=== PATIENT | female | born 1945 | race Caucasian/White ===

== ENCOUNTER 2021-08-08 08:44 | Outpatient (CLI) | payer MEDICARE, OTHER, SELFPAY ==
--- NOTE | ~2021-08-08 | DEXA_ITS ---
Bone Density Report Name: VIDHI HANNA Age: 75 Sex: Female Ethnicity: White Date of : 1945 Indication: postmenopausal; height loss; rheumatoid arthritis; Referring Provider: NICHO, RAYMUNDO Study: Bone densitometry was performed. Exam Date: August 08, 2021 Accession number: [id number] Bone Density: Region BMD T-score Z-score Classification AP Spine (L1, L2, L3) 0.941 -0.7 1.7 Normal Femoral Neck (Left) 0.767 -0.7 1.4 Normal Total Hip (Left) 0.871 -0.6 1.3 Normal Total Hip Bilateral Avg 0.843 -0.8 1.1 Normal Femoral Neck (Right) 0.687 -1.5 0.7 Osteopenia Total Hip (Right) 0.814 -1.0 0.8 Normal World Health Organization criteria for BMD impression classify patients as: Normal (T-score at or above -1.0), Osteopenia (T-score between -1.0 and -2.5), or Osteoporosis (T-score at or below -2.5). 10-year Fracture Risk(1): Major Osteoporotic Fracture 14% Hip Fracture 3.1% Reported Risk Factors: [place] (), Neck BMD=0.687, BMI=33.6, rheumatoid arthritis (1) FRAX(R) Version 3.08. Fracture probability calculated for an untreated patient. Fracture probability may be lower if the patient has received treatment. Previous Exams: Region Exam Age BMD T-score BMD Change BMD Change Date g/cm2 vs Baseline vs Previous AP Spine(L1, L2, L3) 08/08/2021 75 0.941 -0.7 -0.016(-1.7%)# -0.011(-1.2%) 05/19/2019 73 0.952 -0.6 -0.005(-0.6%)# 0.056(6.3%)* 05/12/2017 71 0.896 -1.1 -0.061(-6.4%)# -0.032(-3.5%)* 04/17/2015 69 0.928 -0.8 -0.029(-3.1%)# -0.029(-3.1%)# 12/06/2010 65 0.957 -0.6 Total Hip(Left) 08/08/2021 75 0.871 -0.6 -0.035(-3.9%)# -0.023(-2.6%) 05/19/2019 73 0.894 -0.4 -0.012(-1.3%)# 0.021(2.4%) 05/12/2017 71 0.873 -0.6 -0.033(-3.7%)# -0.002(-0.3%) 04/17/2015 69 0.875 -0.5 -0.031(-3.4%)# -0.031(-3.4%)# 12/06/2010 65 0.906 -0.3 Total Hip(Right) 08/08/2021 75 0.814 -1.0 -0.026(-3.1%)# -0.037(-4.3%)* 05/19/2019 73 0.851 -0.7 0.011(1.3%)# -0.027(-3.0%) 05/12/2017 71 0.878 -0.5 0.038(4.5%)# 0.025(3.0%) 04/17/2015 69 0.853 -0.7 0.013(1.5%)# 0.013(1.5%)# 12/06/2010 65 0.840 -0.8 *Denotes significance at 95% confidence level, LSC for AP Spine = 0.022 g/cm2, LSC for Total Hip = 0.027 g/cm2 Clinical Information Provided by Patient: Has rheumatoid arthritis Has used the following medications: Vitamin D, Calcium Patient maximum height was 67 Menopause Age: 53 No regular weight bearing exercise
== END 2021-08-08 08:45 | disposition home or self-care (01) ==
PROVIDERS: PCP Internal Medicine; Visit Provider Internal Medicine
DX: M81.0 Age-related osteoporosis without current pathological fracture (principal); M85.851 Other specified disorders of bone density and structure, right thigh
CPT/HCPCS: 77080

== ENCOUNTER 2021-10-17 10:10 | Outpatient (CLI) | payer MEDICARE, OTHER, SELFPAY ==
--- NOTE | ~2021-10-17 | XR_ITS ---
EXAMINATION: XR chest 2V 10/17/2021 10:30 INDICATION: Therapeutic drug level monitoring. PROCEDURE: 2 view chest COMPARISON: Comparison to multiple prior studies sequentially, with oldest reviewed study dated 12/06. FINDINGS: The lungs are clear. The cardiomediastinal silhouette is within normal limits. There are no pleural effusions. There is no pneumothorax suspected. IMPRESSION: 1: NO ACUTE CARDIOPULMONARY DISEASE. Reviewed, dictated and finalized at location B. ERY STARTER
== END 2021-10-17 10:11 | disposition home or self-care (01) ==
LOC: ANHIMG 10:17
PROVIDERS: PCP Internal Medicine; Visit Provider Internal Medicine Rheumatology
DX: Z51.81 Encounter for therapeutic drug level monitoring (principal); Z79.899 Other long term (current) drug therapy
CPT/HCPCS: 71046

== ENCOUNTER 2022-07-01 11:01 | Outpatient (CLI) | payer MEDICARE, OTHER, SELFPAY ==
--- NOTE | ~2022-07-01 | MR_ITS ---
EXAMINATION: MR brain IAC wo/w con DATE: 07/01/2022 12:07 INDICATION: Asymmetrical sensorineural hearing loss. TECHNIQUE: Magnetic resonance imaging (MRI) of the brain, brainstem, and internal auditory canals was performed without and with 19 mL MultiHance intravenous contrast. COMPARISON: None. FINDINGS: There is no intracranial hemorrhage, acute infarction, or abnormal intracranial mass lesion . There is a developmental venous anomaly in left frontal lobe. There are scattered areas of nonspeci fic increased T2-weighted signal intensity in the cerebral white matter, which is within normal limit s for the patient's age. The ventricles are normal in size. The paranasal sinuses are clear. The orbi ts are normal. The internal auditory canals and inner and middle ears are normal. The mastoid air lisa ls are normal. IMPRESSION: 1. Normal aging brain. Reviewed, dictated and finalized at location A. TAG INSERTER IMPRESSION: 1. Normal aging brain.
== END 2022-07-01 11:02 | disposition home or self-care (01) ==
PROVIDERS: PCP Internal Medicine
DX: H90.3 Sensorineural hearing loss, bilateral (principal)
CPT/HCPCS: 70553; A9577

== ENCOUNTER 2022-10-04 08:31 | Outpatient (CLI) | payer MEDICARE, OTHER, SELFPAY ==
--- NOTE | ~2022-10-04 | XR_ITS ---
Clinical Indication: Therapeutic drug level monitoring PA and lateral views of the chest: Comparison: 10/17/2021 Findings: The lungs are clear, without evidence of focal consolidation or pleural effusion. Cardiome diastinal silhouette is within normal limits. Bones and soft tissues are unremarkable. Impression: Normal chest. Reviewed, dictated and finalized at location . EY INSTRUMENT OPERATOR Impression: Normal chest.
== END 2022-10-04 08:32 | disposition home or self-care (01) ==
PROVIDERS: PCP Internal Medicine; Visit Provider Internal Medicine Rheumatology
DX: Z51.81 Encounter for therapeutic drug level monitoring (principal)
CPT/HCPCS: 71046

== ENCOUNTER 2023-07-16 14:47 | Outpatient (CLI) | payer MEDICARE, OTHER, SELFPAY ==
--- NOTE | ~2023-07-16 | XR_ITS ---
EXAMINATION: XR chest 2V 07/16/2023 15:06 INDICATION: Encounter for therapeutic drug monitoring. PROCEDURE: 2 view chest COMPARISON: Comparison to multiple prior studies sequentially, with oldest reviewed study dated 01/2013. FINDINGS: The lungs are clear. The cardiomediastinal silhouette is within normal limits. There are no pleural effusions. There is no pneumothorax suspected. IMPRESSION: 1: NO ACUTE CARDIOPULMONARY DISEASE. Reviewed, dictated and finalized at location B. ER GENERAL
== END 2023-07-16 14:48 | disposition home or self-care (01) ==
PROVIDERS: PCP Internal Medicine; Visit Provider Internal Medicine Rheumatology
DX: Z51.81 Encounter for therapeutic drug level monitoring (principal)
CPT/HCPCS: 71046

== ENCOUNTER 2023-11-21 13:04 | Outpatient (CLI) | payer MEDICARE, OTHER, SELFPAY ==
--- NOTE | ~2023-11-21 | DEXA_ITS ---
Bone Density Report Name: VIDHI HANNA Age: 78 Sex: Female Ethnicity: White Date of : 1945 Indication: postmenopausal; screening for osteoporosis; height loss; history of glucocorticoids; cancer; rheumatoid arthritis; Referring Provider: VALENCIA, HERBERT Study: Bone densitometry was performed. Exam Date: November 21, 2023 Accession number: [id number] Bone Density: Region BMD T-score Z-score Classification AP Spine(L1, L2, L3) 0.959 -0.5 2.0 Normal Femoral Neck (Left) 0.638 -1.9 0.4 Osteopenia Total Hip (Left) 0.861 -0.7 1.3 Normal Femoral Neck (Right) 0.723 -1.1 1.1 Osteopenia Total Hip (Right) 0.883 -0.5 1.5 Normal Total Hip Mean 0.872 -0.6 1.4 Normal World Health Organization criteria for BMD impression classify patients as: Normal (T-score at or above -1.0), Osteopenia (T-score between -1.0 and -2.5), or Osteoporosis (T-score at or below -2.5). 10-year Fracture Risk(1): Major Osteoporotic Fracture 26% Hip Fracture 8.3% Reported Risk Factors: [place] (), Neck BMD=0.638, BMI=34.4, glucocorticoids, rheumatoid arthritis (1) FRAX(R) Version 3.08. Fracture probability calculated for an untreated patient. Fracture probability may be lower if the patient has received treatment. Clinical Information Provided by Patient: Has taken Glucocorticoids Has rheumatoid arthritis Has used the following medications: Vitamin D, Calcium Has the following medical conditions: Cancer Patient maximum height was 67 Menopause Age: 53 No regular weight bearing exercise Onset of menses at age 13 Number of children 3 Impression: The patient has low bone mass, based on the Left Femoral Neck T-score. The patient has an estimated ten-year risk of hip fracture of 8.3% and an estimated ten-year risk of major fracture of 26%, based on the WHO FRAX algorithm. The patient has risk factors, including: history of glucocorticoid therapy. Discussion: BONE DENSITY IS LOW AT ONE OR MORE SKELETAL SITES. THE PATIENT'S BMD AND CLINICAL RISK FACTORS CONTRIBUTE TO THIS PATIENT'S HIGH RISK OF FRACTURE. This patient's lowest T-score is low at one or more skeletal sites. It meets the World Health Organization's (WHO) criteria for ?low bone mass? (T-score between -1.0 and -2.5). The patient's 10-year risk of hip fracture and 10 year risk of a major osteoporotic fracture as calculated by FRAX exceeds the threshold where pharmacological therapy is recommended by the National Osteoporosis Foundation (NOF). However, all treatment decisions require clinical judgment and consideration of individual patient factors, including patient preferences, comorbidities, previous drug use, risk factors not captured in the FRAX model (e.g., frailty, falls, vitamin D deficiency, increased bone turnover, interval significant declin
== END 2023-11-21 13:05 | disposition home or self-care (01) ==
LOC: ANHIMG 13:06
PROVIDERS: PCP Internal Medicine; Visit Provider Obstetrics & Gynecology
DX: M81.0 Age-related osteoporosis without current pathological fracture (principal); Z78.0 Asymptomatic menopausal state; M85.852 Other specified disorders of bone density and structure, left thigh; M85.851 Other specified disorders of bone density and structure, right thigh
CPT/HCPCS: 77080

== ENCOUNTER 2023-11-29 18:08 | Emergency (ER) | payer OTHER, MEDICARE, SELFPAY ==
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
[2023-11-29 18:37] VITALS: BP 136/73; PULSE 79; RESP 20; TEMP 36.8; O2SAT 97
== END 2023-11-29 19:13 | disposition home or self-care (01) ==
PROVIDERS: Emergency Provider Emergency Medicine; PCP Internal Medicine
DX: S86.912A Strain of unspecified muscle(s) and tendon(s) at lower leg level, left leg, initial encounter (principal); I51.9 Heart disease, unspecified; M85.80 Other specified disorders of bone density and structure, unspecified site; M06.9 Rheumatoid arthritis, unspecified; G47.30 Sleep apnea, unspecified; Z87.891 Personal history of nicotine dependence; V39.40XA Driver of three-wheeled motor vehicle injured in collision with unspecified motor vehicles in traffic accident, initial encounter
CPT/HCPCS: 99282

== ENCOUNTER 2023-12-08 09:00 | Outpatient (RCR) | payer MEDICARE, OTHER, SELFPAY ==
--- NOTE | 2023-11-19 10:39 | OPREHPOC ---
Outpatient Therapy Plan of Care This is a Multidisciplinary Plan of Care that may contain components documented by all disciplines (PT, OT, and ST.) PT Problem 1 PT Problem #1 Knowledge Deficit PT Goal 1 Goal *indep with HEP PT Problem 2 PT Problem #2 Pain PT Goal 1 Goal 1* pain rating at worst 2/10 2* pt report walking/standing activity tolerance of 2 hours 3*no tenderness reported with palpation over medial-distal hamstring PT Problem 3 PT Problem #3 Impaired Flexibility PT Goal 1 Goal improve hip/knee muscle flexibility, to improve position of joints 1* R anterior hip/quad length with prone knee flexion 105' PT Problem 4 PT Problem #4 Impaired Strength PT Goal 1 Goal improve strength of R hip and knee to improve stability to LE and knee joint 1*single leg standing 20 seconds with good stability 2* prone hip extension x 20 reps 3 * side lying hip abduction to 10' x 20 reps 4* 2 minute walking test distance of 475'
--- NOTE | 2023-11-19 10:40 | PTOPEVAL1 ---
Assessment and note entered by Velvet Montenegro, PT Evaluation Information Assessment Status Evaluation Diagnosis L knee pain Onset August 2023 Subjective Information In August, stepped down step, knee gave out and caught self with the hand railing, did not fall; more pain since then; also have pain in L hip; history of RA; does not use assistive device; knee xray: moderate to severe degenerative changes dr wanted to give her knee injection, she did not want one at that time; have started water aerobics about 3 weeks ago, try to go every day; have new approach--- goal to lose weight, do water exercises and PT for her knee and health; Activity: active, work in yard, indep with all home and self care activities; Reported Pain Level Pain Score Self Report Additional Pain Score Comments pain range in the past week 0-3/10; medial and posterior knee- dull, pulling, aching pain water exercises have helped her pain, not taking aleve as much as she was; sleep is OK; walking/standing/ activity tolerance with home tasks 1-1&1/2 hours Assessment PT Clinical Summary Cristin has the diagnosis of L knee pain. Pain increased with going down stairs, knee gave out and she caught herself with the hand railing. Also recently had L hip pain with doing more yard work and squatting/bending. Her history includes rheumatoid arthritis, osteopenia. Recently has begun water exercises and she feels they have helped her knee. She is active and does not use an assistive device. With the evaluation: she has weakness over L hip and knee, with tightness over anterior hip/quad muscle and tenderness with palpation over distal- medial hamstring area/popliteal crease. Skilled PT services are indicated for modalities to decrease pain, therapeutic exercises to increase L hip and knee st
--- NOTE | 2023-11-19 10:41 | PCPTNOTE ---
pt was 20 minutes late for the initial evaluation today;
--- NOTE | 2023-12-03 12:49 | PCPTNOTE ---
pt called and canceled today's appt--stated she was not able to make it in today..
--- NOTE | 2023-12-08 09:55 | PTOPDC ---
Assessment and note entered by Velvet Montenegro, PT Discharge Information Assessment Status Discharge Diagnosis L knee pain Onset August 2023 Subjective Information up and doing things around the house about 2 hours doing exercises at home and doing more; ready to be finished with therapy; have been doing aquatic exercises 4-5 x/wk Reported Pain Level Pain Score Self Report Additional Pain Score Comments no tenderness with palpation over L knee or hamstring pain range over the past week 0-4/10- stiff and tender Assessment PT Clinical Summary Cristin has received 5 PT sessions. She called and canceled one appointment. Compared to the initial evaluation: pain rating about the same at 0-4/10; increase in reported standing/activity tolerance to 2 hours; no tenderness with palpation over L knee/hamstring; flexibility of anterior hip/quad muscle is the same--increase pain in knee; 2 minute walking test distance increased by 20'; education completed for HEP. The goals were partially met. Discharge PT. She is to continue with her exercises at home. Plan of Care PT Services Indicated No
== END 2023-12-08 10:58 | disposition home or self-care (01) ==
LOC: ANHPT 09:00
PROVIDERS: PCP Internal Medicine; Visit Provider Orthopaedic Surgery
DX: M25.562 Pain in left knee (principal)
CPT/HCPCS: 97110; 97161; 97530

== ENCOUNTER 2024-04-02 08:20 | Emergency (ER) | payer MEDICARE, OTHER, SELFPAY ==
--- NOTE | ~2024-04-02 | XR_ITS ---
Clinical Indication: Cough PA and lateral views of the chest: Comparison: 07/16/2023 Findings: The lungs are clear, without evidence of focal consolidation or pleural effusion. Cardiome diastinal silhouette is within normal limits. Bones and soft tissues are unremarkable. Impression: Normal chest. Reviewed, dictated and finalized at location . Impression: Normal chest.
--- NOTE | 2024-04-02 08:22 | ED.URI ---
HPI - URI/Sore Throat General Chief Complaint: Upper Respiratory Infection Stated Complaint: Sore Throat/Cough Time Seen by Provider: 04/02/24 08:35 Source: patient, RN notes reviewed and old records reviewed Mode of arrival: ambulatory Limitations: no limitations History of Present Illness HPI Narrative: 78-year-old female presents to the [facility] with complaints of a cough and sore throat that started 2 days ago. Denies fevers. Has had postnasal drainage. Patient also reports sinus pressure. Onset (ago): day(s) (2) Related Data Home Medications Medication Instructions Recorded Confirmed calcium carbonate 600 mg-vitamin 1 tablet PO DAILY 09/14/19 04/02/24 D3 20 mcg (800 unit) chewable tablet (Caltrate 600 plus D) folic acid 1 mg tablet 1 mg PO DAILY 09/14/19 04/02/24 methotrexate sodium 2.5 mg tablet 2.5 mg PO WEEKLY 09/14/19 04/02/24 omega-3 fatty acids 1,000 mg 1,000 mg PO DAILY 09/14/19 04/02/24 capsule (Fish Oil Concentrate) vitamin B complex (B 1 tablet PO DAILY 09/14/19 04/02/24 Complex-Vitamin B12 tablet) adalimumab 40 mg/0.4 mL 40 mg subcut Q14D 11/04/23 04/02/24 subcutaneous pen kit albuterol sulfate 90 mcg/actuation 1 puff inhalation Q4H PRN SOB 11/04/23 04/02/24 aerosol inhaler (ProAir HFA) amlodipine 5 mg tablet 5 mg PO DAILY 11/04/23 04/02/24 ciclopirox 1 % shampoo 5 ml topical 2XW 11/04/23 04/02/24 ergocalciferol (vitamin D2) 1,250 50,000 mcg PO DAILY 11/04/23 04/02/24 mcg (50,000 unit) capsule (Drisdol) ezetimibe 10 mg tablet 10 mg PO DAILY 11/04/23 04/02/24 fexofenadine 180 mg tablet 180 mg PO DAILY 11/04/23 04/02/24 fluocinolone 0.01 % topical 1 applic topical BID 11/04/23 04/02/24 solution fluticasone propionate 50 1 spray intranasal DAILY 11/04/23 04/02/24 mcg/actuation nasal spray,suspension (Flonase Allergy Relief) hydrocortisone 2.5 % lotion 1 applic topical BID PRN Itching 11/04/23 04/02/24 lifitegrast 5 % eye drops in a 1 drp EACH EYE BID 11/04/23 04/02/24 dropperette (Xiidra) montelukast 10 mg tablet 10 mg PO DAILY 11/04/23 04/02/24 rosuvastatin 10 mg tablet 10 mg PO DAILY 11/04/23 04/02/24 Allergies Allergy/AdvReac Type Severity Reaction Status Date / Time No Known Allergies Allergy Mild Verified 04/02/24 08:28 Review of Systems Review of Systems: All systems reviewed & are unremarkable except as noted in HPI and below Constitutional: Constitutional: Reports no additional constitutional complaints and Denies fever(s) Eyes: Eyes: Reports no additional eye complaints ENT: Reports as per HPI Cardiovascular: Cardiovascular: Reports no additional cardiovascular complaints, Denies chest pain and Denies dyspnea Respiratory: Respiratory: Reports as per HPI, Reports chest congestion, Reports cough and Denies dyspnea Gastrointestinal: Gastrointestinal: Reports no additional gastrointestinal complaints, Denies abdominal pain, Denies nausea and Denies vomiting Musculoskeletal: Musculoskeletal: Reports no additional musculoskeletal complaints Integumentary/Breasts: Skin/Breast: Reports system reviewed and no additional complaints, except as docu Neurologic: Reports system reviewed and no additional complaints, except as documented Psychiatric: Psychiatric: Reports no additional psychiatric complaints Allergic/Immunologic: Allergic/Immunologic: Reports no additional allergic/immunologic complaints PMFSH Past Medical History Medical History Heart disease High triglycerides History of Mohs micrographic surgery for skin cancer Osteopenia Rheumatoid arthritis Skin cancer Sleep apnea Surgical History Surgical History History of breast augmentation History of shoulder surgery bilateral Family History Family History Father Family history of alcoholism Family history of Alzheimer's diseas
[2024-04-02 08:30] VITALS: BP 115/67; PULSE 67; RESP 12; TEMP 36.9; O2SAT 98
[2024-04-02 09:04] LABS: EDINFLUASCREEN Negative; EDINFLUBSCREEN Negative; EDSTREPNEGPOS1 Presumptive Negative
== END 2024-04-02 09:35 | disposition home or self-care (01) ==
PROVIDERS: Emergency Provider Nurse Practitioner; PCP Internal Medicine
DX: J40 Bronchitis, not specified as acute or chronic (principal); Z20.822 Contact with and (suspected) exposure to COVID-19; Z87.891 Personal history of nicotine dependence; M85.80 Other specified disorders of bone density and structure, unspecified site; M06.9 Rheumatoid arthritis, unspecified; E78.1 Pure hyperglyceridemia; Z85.828 Personal history of other malignant neoplasm of skin
CPT/HCPCS: 71046; 87081; 87426; 87804; 87880; 99213; G0463